=== PATIENT | female | born 1995 | race Caucasian/White ===

== ENCOUNTER 2017-07-20 12:35 | Emergency (ER) | payer OTHER ==
--- OUTSIDE RECORDS SUMMARY | 2017-07-20 12:38 | XMS REPORT ---
:1995 [facility] Address [address] [place] [address] Care Team Providers Name Role Phone Mariella MCGHEE Unavailable Unavailable Kolby MADRID Unavailable Unavailable Problems This patient has no known problems. Allergies, Adverse Reactions, Alerts This patient has no known allergies or adverse reactions. Medications This patient has no known medications. Results Test Description Test Time Test Comments Text Results Atomic Results Result Comments TSH (Ultra Sensitive) 2016-12-13 07:41:00 Test Item Value Reference Range Comments TSH (test code=TSH) 4.13 mIU/L 0.47-4.68 TRA 3DRUG SCREEN [id number] 07:36:00 Test Item Value Reference Range Comments Amphetamines (test Presumptive Positive; code=AMPHET) Confirmation Upon Request FT (test code=CHAPIN) Negative (qualifier value) FT (test code=BENZO) Negative (qualifier value) FT (test code=MARY) Negative (qualifier value) FT (test code=MTD) Negative (qualifier value) FT (test code=OPIAT) Negative (qualifier value) FT (test code=PCP) Negative (qualifier The following table value) provides an interpretive guide for the Drugs of Abuse ran on the [employer] 5.1 analyzer listed there in: Amphetamines < 1000 ng/ml=Negative Barbituates < 200 ng/ml=Negative Benzodiazapines < 200 ngml=Negative Cocaine < 300 ng/ml=Negative Methadone < 300 ng/ml=Negative Opiate < 300 ng/ml=Negative PCP < 25 ng/ml=Negative THC < 50 ng/ml=Negative Results equal to or greater than the above cut-off values=Presumptive Positive. Confirmation of Presumptive Positive results are available upon request. FT (test code=THC) Negative (qualifier value) TRA 3URINALYSIS WITH [id number] 07:18:00 Test Item Value Reference Range Comments Color (test code=UCOLR) YELLOW Clarity (test code=UCLAR) CLEAR Glucose (test code=UGLUC) NEGATIVE NEGATIVE Bilirubin (test code=UBILI) NEGATIVE NEGATIVE Ketones (test code=UKET) TRACE NEGATIVE Specific [place] (test code=USPGR) 1.025 1.005-1.030 Blood (test code=UBLD) TRACE-LYSED NEGATIVE PH (test code=UPH) 6.0 4.5-8.0 Protein (test code=UPROT) TRACE NEGATIVE Urobilinogen (test code=U UROB) 0.2 >0.2 Nitrite (test code=UNITR) POSITIVE NEGATIVE Leukocyte Esterase (test code=ULEUK) TRACE NEGATIVE WBC (test code=WBCUR) 10-20 0-5 RBC (test code=RBCUR) 5-10 0-5 Epithial Cells (test code=U EPI) 0-10 0-10 Mucous (test code=UMUC) Moderate None Seen Bacteria (test code=UBACT) 4+ None Seen,Trace Urine Casts (test code=UR CAST) Rare Hyaline Cast None Seen Urine Misc (test code=UR MISC) Few Budding Yeast None Seen TRA 3ALCOHOL, [id number] 06:04:00 Test Item Value Reference Range Comments Alcohol % (test code=ALCPC) 0 % 0.00-0.00 Ethanol % 0.00 - 0.10 Sub-clinical 0.11 - 0.20 Emotional Instability 0.21 - 0.30 Confusion 0.31 - 0.40 Stupor 0.41 - 0.50 Coma >.50 Fatal TRA 3SALICYLATES (Aspirin)2016-12-13 06:04:00 Test Item Value Reference Range Comments Salicylate (test code=SALI) <1.0 mg/dl 0.0-30.0 Salicylates Reference Ranges: Therapeutic 15 - 30 mg/dl Toxicity >30 mg/dl Lethal >70 mg/dl TRA 3ACETAMINOPHEN (Tyenol)2016-12-13 06:04:00 Test Item Value Reference Range Comments Acetaminophen (test code=ACET) <10 ug/ml 10-30 TRA [id number] 05:59:00 Test Item Value Reference Range Comments Glucose (test code=GLU) 101 mg/dl 75-110 BUN (test code=BUN) 16.0 mg/dl 6.0-17.0 Creatinine (test 0.8 mg/dl 0.4-1.2 code=CREA) Sodium (test code=NA) 145 mmol/l 137-145 Potassium (test code=K) 3.5 mmol/l 3.5-5.0 Chloride (test code=CL) 109 mmol/l 98-107 CO2 (test code=CO2) 23 mmol/l 22-30 Calcium (test code=CALC) 9.6 mg/dl 8.4-10.2 T Protein (test code=TP) 7.7 gm/dl 5.1-8.7 Albumin (test code=ALB) 4.5 gm/dl 3.5-4.6 A/G Ratio (test 1.4 % 1.1-2.2 code=AGRAT) AST (SGOT) (test 31 U/L 11-36 code=AST) ALT (SGPT) (test 30 U/L 11-40 code=ALT) Alkaline Phos (test 53 U/L 47-114 code=ALKP) Total Bilirubin (test 1.1 mg/dl 0.2-1.2 code=TBIL) Globulin (test 3.2 gm/dl 2.3-3.5 code=GLOBU) Calcium, Corrected (test 9.2 mg/dl 8.4-10.2 Various formulas exist for code=CALCCORR) corrected serum calcium results, each yielding different values. This corrected result was based on the formula: Corrected Calcium=SerumCalcium + [0.8 * ( 4 - SerumAlbumin)] EGFR if >60 (test code=EGFRAA) mL/min/1.73m\S\2 EGFR if Non- >60 Estimated Glomerular Citizen Of [place] (test mL/min/1.73m\S\2 Filtration Rate (eGFR) code=EGFRNA) Reference Intervals Decision Points for 18 years and older and average body mass: >=60 Does not exclude kidney disease. 30 - 59 Suggests moderate chronic kidney disease and indicates the need for further investigation including assessment of proteinuria and cardiovascular factors. < 30 Usually indicates a need for referral for assessment and management of chronic kidney failure. TRA 3PREGNANCY TEST, Serum [id number] 05:55:00 Test Item Value Reference Range Comments (Serum) (test code=PREGS) Negative TRA 3CBC WITH AUTO [id number] 05:48:00 Test Item Value Reference Range Comments WBC (test code=WBC) 11.72 10\S\3/ul 4.80-10.80 RBC (test code=RBC) 4.45 10\S\6/ul 4.20-5.40 Hemoglobin (test code=HGB) 11.0 gm/dl 12.0-14.0 Hematocrit (test code=HCT) 34.6 % 37.0-47.0 MCV (test code=MCV) 77.8 fL 81.0-99.0 MCH (test code=MCH) 24.7 pg 27.0-31.0 MCHC (test code=MCHC) 31.8 gm/dl 33.0-37.0 RDW-SD (test code=RDW-SD) 51.9 fL 36.4-46.3 Platelet (test code=PLT) 349 10\S\3/ul 130-400 MPV (test code=MPV) 9.7 fL 7.4-10.4 NE% (test code=NE) 61.6 % 42.0-75.0 LY% (test code=LY) 28.8 % 13.0-42.0 MO% (test code=MO) 7.8 % 4.0-14.0 EO% (test code=EO) 1.0 % 1.0-3.0 BA% (test code=BA) 0.5 % 1.0-3.0 IG% (test code=IG%) 0.3 % 0.0-0.4 TRA 3LIPASE, [id number] 17:34:00 Test Item Value Reference Range Comments Lipase (test code=LIPA) 68 U/L 8-223 [id number] 17:34:00 Test Item Value Reference Range Comments Glucose (test code=GLU) 92 mg/dl 75-110 BUN (test code=BUN) 19.0 mg/dl 6.0-17.0 Creatinine (test 0.7 mg/dl 0.4-1.2 code=CREA) Sodium (test code=NA) 141 mmol/l 137-145 Potassium (test code=K) 4.4 mmol/l 3.5-5.0 Chloride (test code=CL) 103 mmol/l 98-107 CO2 (test code=CO2) 26 mmol/l 22-30 Calcium (test code=CALC) 9.3 mg/dl 8.4-10.2 T Protein (test code=TP) 8.7 gm/dl 5.1-8.7 Albumin (test code=ALB) 5.0 gm/dl 3.5-4.6 A/G Ratio (test 1.4 % 1.1-2.2 code=AGRAT) AST (SGOT) (test 33 U/L 11-36 code=AST) ALT (SGPT) (test 27 U/L 11-40 code=ALT) Alkaline Phos (test 67 U/L 47-114 code=ALKP) Total Bilirubin (test 0.7 mg/dl 0.2-1.2 code=TBIL) Globulin (test 3.7 gm/dl 2.3-3.5 code=GLOBU) Calcium, Corrected (test 8.5 mg/dl 8.4-10.2 Various formulas exist for code=CALCCORR) corrected serum calcium results, each yielding different values. This corrected result was based on the formula: Corrected Calcium=SerumCalcium + [0.8 * ( 4 - SerumAlbumin)] EGFR if >60 (test code=EGFRAA) mL/min/1.73m\S\2 EGFR if Non- >60 Estimated Glomerular Citizen [place] (test mL/min/1.73m\S\2 Filtration Rate (eGFR) code=EGFRNA) Reference Intervals Decision Points for 18 years and older and average body mass: >=60 Does not exclude kidney disease. 30 - 59 Suggests moderate chronic kidney disease and indicates the need for further investigation including assessment of proteinuria and cardiovascular factors. < 30 Usually indicates a need for referral for assessment and management of chronic kidney failure. CBC WITH AUTO [id number] 17:14:00 Test Item Value Reference Range Comments WBC (test code=WBC) 13.1 k/ul 4.8-10.8 RBC (test code=RBC) 5.09 Millions/ul 4.20-5.40 Hemoglobin (test code=HGB) 12.3 gm/dl 12.0-14.0 Hematocrit (test code=HCT) 38.4 % 37.0-47.0 MCV (test code=MCV) 75.6 fL 81.0-99.0 MCH (test code=MCH) 24.1 pg 27.0-31.0 MCHC (test code=MCHC) 31.9 gm/dl 33.0-37.0 RDW (test code=RDWVC) 19.5 % 11.5-14.5 Platelet (test code=PLT) 346 10\S\3/ul 130-400 MPV (test code=MPV) 8.0 fL 7.4-10.4 NE% (test code=NE) 86.9 % 42.0-75.0 LY% (test code=LY) 7.7 % 13.0-42.0 MO% (test code=MO) 4.9 % 4.0-14.0 EO% (test code=EO) 0.2 % 1.0-3.0 BA% (test code=BA) 0.3 % 1.0-3.0 NRBC, Auto (test code=NRBC_AUTO) 0 TEST, Urine [id number] 16:27:00 Test Item Value Reference Range Comments (Urine) (test code=PREGU) Negative If a specimen is collected by a nurse, then you MUST fill out the Collected and Collected By ashley URINALYSIS WITHOUT [id number] 16:24:00 Test Item Value Reference Range Comments Color (test code=UCOLR) YELLOW Clarity (test code=UCLAR) CLEAR Glucose (test code=UGLUC) NEGATIVE NEGATIVE Bilirubin (test code=UBILI) NEGATIVE NEGATIVE Ketones (test code=UKET) NEGATIVE NEGATIVE Specific [place] (test code=USPGR) 1.025 1.005-1.030 Blood (test code=UBLD) NEGATIVE NEGATIVE PH (test code=UPH) 6.0 4.5-8.0 Protein (test code=UPROT) TRACE NEGATIVE Urobilinogen (test code=U UROB) 0.2 >0.2 Nitrite (test code=UNITR) NEGATIVE NEGATIVE Leukocyte Esterase (test code=ULEUK) NEGATIVE NEGATIVE
[2017-07-20 15:42] LABS: Absolute Monocytes 0.9 K/uL (0.1-1.3); Absolute Neutrophil 12.3 K/uL (1.8-8.0); Basophils % 0.4 % (0-1.3); Eosinophils % 0.7 % (0-4.4); Hematocrit 33.3 % (36.0-45.0); MCH 25.8 pg (27.0-35.0); MCV 80.6 fL (80-100); MPV 8.2 fL (7.6-11.3); Monocytes % 6.1 % (3.3-12.3); RBC Red Blood Cell Count 4.14 M/uL (3.86-4.86)
[2017-07-20 15:48] LABS: BUN Blood Urea Nitrogen 6 mg/dL (6-20); Bicarbonate 25 mEq/L (21-31); Glomerular Filtration Rate > 90 mL/min (=/>90); Glucose Level 95 mg/dL (65-120); Potassium 3.4 mEq/L (3.6-5.0); Sodium Level 134 mEq/L (135-145)
--- NOTE | 2017-07-20 16:48 | ER ---
Nurse's Notes [facility] Name: [facility] Age: 22 yrs Sex: Female : 1995 Arrival Date: 07/20/2017 Time: 12:40 Bed 28 Private MD: Diagnosis: Threatened Presentation: 07/20 12:45 Presenting complaint: Patient states: Bilateral lower abdominal cramping and vaginal aj spotting that started today. Patient reports she is 15 weeks . 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 Transition of care: patient was not received from another setting of care. Onset of symptoms was July 20, 2017. Care prior to arrival: None. 12:45 Method Of Arrival: Ambulatory aj 12:45 Acuity: KATIE 3 aj Triage Assessment: 12:46 General: Appears in no apparent distress. comfortable, Behavior is calm, cooperative, aj appropriate for age. Pain: Complains of pain in abdomen. Neuro: Level of Consciousness is awake, alert, obeys commands, Oriented to person, place, time, situation. Respiratory: Airway is patent Respiratory effort is even, unlabored, Respiratory pattern is regular, symmetrical. : Reports vaginal bleeding that is bright red, spotty. Derm: Skin is intact, is healthy with good turgor, Skin is pink, warm \T\ dry. normal. 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 - Social history:: Smoking status: Patient uses tobacco products, smokes one pack cigarettes per day. Patient uses street drugs, Methamphetamine (Meth). Screenin:17 Abuse screen: Denies threats or abuse. Nutritional screening: No deficits noted. rk2 Tuberculosis screening: No symptoms or risk factors identified. Fall Risk None identified. Assessment: 16:08 Reassessment: US being completed \T\ bedside. rk2 16:17 General: Appears in no apparent distress. well developed, well nourished. Pain: Denies rk2 pain. Neuro: No deficits noted. Level of Consciousness is alert, Oriented to person, place, time, situation. Respiratory: Airway is patent Respiratory effort is even, unlabored, Respiratory pattern is regular, symmetrical. GI: Patient currently denies abdominal pain. Derm: Skin is pink, warm \T\ dry. 16:50 Reassessment: Pt. resting in room \T\ this time, waiting for medications to come from [facility] blood bank. Pt. voiced no needs \T\ this time. Appears to be in no obvious distress. 17:59 Reassessment: Pt. received RhoGam shot... Reviewed DC instructions with pt. Pt. able to [facility] ambulate out on her own. Vital Signs: 12:46 BP 130 / 79; Pulse 115; Resp 20; Temp 98.5; Pulse Ox 99% on R/A; Weight 63.5 kg; Height aj 5 ft. 3 in. (160.02 cm); Pain 1/10; 15:23 BP 141 / 84; Pulse 87; Resp 16; Pulse Ox 100% on R/A; rk2 16:45 BP 133 / 88; Pulse 92; Resp 16; Pulse Ox 100% on R/A; rk2 17:45 BP 121 / 68; Pulse 96; Resp 16; Pulse Ox 100% on R/A; rk2 12:46 Body Mass Index 24.80 (63.50 kg, 160.02 cm) aj ED Course: 12:40 Patient arrived in ED. sb2 12:46 Triage completed. aj 12:46 Arm band placed on left wrist. Patient placed in waiting room, Patient notified of wait aj time. 15:08 Jaya Robledo NP is PHCP. pm1 15:08 Akash Major MD is Attending Physician. pm1 15:08 PHCP role handed off by Jaya Robledo NP jr8 15:08 Westley Townsend PA is PHCP. jr8 15:18 Vickie Enriquez, LILLIAN is Primary Nurse. rk2 15:25 Urine collected: clean catch specimen, clear. dh3 15:28 Initial lab(s) drawn, by me, sent to lab. Inserted saline lock: 20 gauge in left dh3 antecubital area, using aseptic technique. Blood collected. 16:07 US OB Limited Sent. rk2 16:17 Patient has correct armband on for positive identification. Bed in low position. Call rk2 light in reach. 16:42 Note: us done bedside/portable. lc3 18:03 No provider procedures requiring assistance completed. IV discontinued. rk2 Administered Medications: 17:45 Drug: RhoGAM (Human) 300 mcg Route: IM; Site: left deltoid; rk2 17:50 Follow up: Response: No adverse reaction; given \T\ DC rk2 Intake: Outcome: 16:47 Discharge ordered by MD. white 18:03 Discharged to home ambulatory. rk2 18:03 Condition: good 18:03 Discharge instructions given to patient. 18:04 Patient left the ED. rk2 Signatures: Maritza Haney, RN RN Westley Mccallum PA PA jr8 Georges Gold Patrick, NP CHILD CARE DEVELOPMENT SPECIALIST pm1 Myrna Blair 3 Vickie Enriquez RN RN rk2 Aubrie Katz sb2
--- NOTE | 2017-07-20 16:48 | EDPHYS ---
Physician Documentation [facility] Name: [facility] Age: 22 yrs Sex: Female : 1995 Arrival Date: 07/20/2017 Time: 12:40 Bed 28 Private MD: ED Physician Akash Major HPI: 07/20 15:15 This 22 yrs old Female presents to ER via Ambulatory with complaints of ABD jr8 PAIN,16 WEEKS . 15:15 The patient presents with pelvic pain, vaginal bleeding that is light, spotting. Onset: jr8 The symptoms/episode began/occurred acutely, today. Modifying factors: The symptoms are alleviated by nothing, the symptoms are aggravated by nothing. Associated signs and symptoms: The patient has no apparent associated signs or symptoms. Severity of symptoms: At their worst the symptoms were mild, in the emergency department the symptoms are unchanged. The patient has not experienced similar symptoms in the past. The patient has not recently seen a physician. 15:16 Denies trauma, recent illness, or urinary symptoms . jr8 DENIAL RESOLUTION SPECIALIST: 12:46 4, Full Term 2, Premature 0, 1, Living 2 aj 15:15 4, Full Term 2, Premature 0, 1, Living 2, Verified jr8 Historical: - Allergies: 12:46 No Known Allergies; aj - Home Meds: 12:46 Vitamin Oral [Active]; aj - PMHx: 12:46 Anemia; aj - PSHx: 12:46 None; aj - Immunization history:: Adult Immunizations up to date. - Social history:: Smoking status: Patient uses tobacco products, smokes one pack cigarettes per day. Patient uses street drugs, Methamphetamine (Meth). ROS: 15:15 Eyes: Negative for injury, pain, redness, and discharge, ENT: Negative for injury, jr8 pain, and discharge, Neck: Negative for injury, pain, and swelling, Cardiovascular: Negative for chest pain, palpitations, and edema, Respiratory: Negative for shortness of breath, cough, wheezing, and pleuritic chest pain, Abdomen/GI: Negative for abdominal pain, nausea, vomiting, diarrhea, and constipation, Back: Negative for injury and pain, MS/Extremity: Negative for injury and deformity, Skin: Negative for injury, rash, and discoloration, Neuro: Negative for headache, weakness, numbness, tingling, and seizure. 15:15 : Positive for pelvic pain, vaginal bleeding, Negative for urinary symptoms, hematuria, flank pain, vaginal discharge, vaginal itching. Exam: 15:15 Eyes: Pupils equal round and reactive to light, extra-ocular motions intact. Lids and jr8 lashes normal. Conjunctiva and sclera are non-icteric and not injected. Cornea within normal limits. Periorbital areas with no swelling, redness, or edema. ENT: Nares patent. No nasal discharge, no septal abnormalities noted. Tympanic membranes are normal and external auditory canals are clear. Oropharynx with no redness, swelling, or masses, exudates, or evidence of obstruction, uvula midline. Mucous membranes moist. Neck: Trachea midline, no thyromegaly or masses palpated, and no cervical lymphadenopathy. Supple, full range of motion without nuchal rigidity, or vertebral point tenderness. No Meningismus. Cardiovascular: Regular rate and rhythm with a normal S1 and S2. No gallops, murmurs, or rubs. Normal PMI, no JVD. No pulse deficits. Respiratory: Lungs have equal breath sounds bilaterally, clear to auscultation and percussion. No rales, rhonchi or wheezes noted. No increased work of breathing, no retractions or nasal flaring. Abdomen/GI: Soft, non-tender, with normal bowel sounds. No distension or tympany. No guarding or rebound. No evidence of tenderness throughout. Back: No spinal tenderness. No costovertebral tenderness. Full range of motion. Skin: Warm, dry with normal turgor. Normal color with no rashes, no lesions, and no evidence of cellulitis. MS/ Extremity: Pulses equal, no cyanosis. Neurovascular intact. Full, normal range of motion. Neuro: Awake and alert, GCS 15, oriented to person, place, time, and situation. Cranial nerves II-XII grossly intact. Motor strength 5/5 in all extremities. Sensory grossly intact. Cerebellar exam normal. Normal gait. Vital Signs: 12:46 BP 130 / 79; Pulse 115; Resp 20; Temp 98.5; Pulse Ox 99% on R/A; Weight 63.5 kg; Height aj 5 ft. 3 in. (160.02 cm); Pain 1/10; 15:23 BP 141 / 84; Pulse 87; Resp 16; Pulse Ox 100% on R/A; rk2 16:45 BP 133 / 88; Pulse 92; Resp 16; Pulse Ox 100% on R/A; rk2 17:45 BP 121 / 68; Pulse 96; Resp 16; Pulse Ox 100% on R/A; rk2 12:46 Body Mass Index 24.80 (63.50 kg, 160.02 cm) aj MDM: 15:08 Patient medically screened. pm1 16:46 Data reviewed: vital signs, nurses notes, lab test result(s), radiologic studies, [facility] ultrasound, and as a result, I will discharge patient. Data interpreted: Pulse oximetry: on room air is 100 %. Interpretation: normal. Counseling: I had a detailed discussion with the patient and/or guardian regarding: the historical points, exam findings, and any diagnostic results supporting the discharge/admit diagnosis, lab results, radiology results, the need for outpatient follow up, an OB/Gyne specialist, to return to the emergency department if symptoms worsen or persist or if there are any questions or concerns that arise at home. ED course: Instructions given for pelvic rest, lots of water, tylenol only for pain. To f/u with DENIAL RESOLUTION SPECIALIST. To continue rehab and to stay away from drug use. Patient understood and would follow instructions and follow up . 07/20 15:08 Order name: Quantitative Hcg [facility] 07/20 15:08 Order name: Abo/rh Typing [facility] 07/20 15:08 Order name: Basic Metabolic Panel [facility] 07/20 15:08 Order name: CBC with Diff [facility] 07/20 15:48 Order name: Basic Metabolic Panel; Complete Time: 16:47 [facility] 07/20 15:48 Order name: CBC with Automated Diff; Complete Time: 15:58 [facility] 07/20 15:14 Order name: US OB Limited [facility] 07/20 16:22 Order name: Urine Dipstick--Ancillary (enter results) 07/20 16:22 Order name: Urine --Ancillary (enter results) 07/20 16:28 Order name: ABO/RH typing [facility] 07/20 16:34 Order name: HCG, Quantitative; Complete Time: 16:47 [facility] 07/20 17:13 Order name: Antibody Screen [facility] 07/20 17:13 Order name: Urine --Ancillary; Complete Time: 17:27 [facility] 07/20 17:13 Order name: Urine Dipstick-Ancillary; Complete Time: 17:27 [facility] 07/20 15:08 Order name: Urine Test (obtain specimen); Complete Time: 15: jr8 07/20 15:08 Order name: IV Saline Lock; Complete Time: 15: jr8 07/20 15:08 Order name: Labs collected and sent; Complete Time: 15:8 07/20 15:08 Order name: NPO; Complete Time: 15:8 07/20 15:08 Order name: Urine Dipstick-Ancillary (obtain specimen); Complete Time: 15: 8 07/20 16:50 Order name: US; Complete Time: 16:57 EDMS Administered Medications: 17:45 Drug: RhoGAM (Human) 300 mcg Route: IM; Site: left deltoid; rk2 17:50 Follow up: Response: No adverse reaction; given \T\ DC rk2 Disposition: 07/21 07:33 Co-signature as Attending Physician, Akash Major MD I agree with the assessment and [facility] plan of care. Disposition: 07/20/17 16:47 Discharged to Home. Impression: Threatened . - Condition is Stable. - Discharge Instructions: Threatened Miscarriage, Pelvic Rest. - Medication Reconciliation Form, Thank You Letter, Antibiotic Education, Prescription Opioid Use form. - Follow up: Private Physician; When: 5 - 6 days; Reason: Recheck today's complaints, Continuance of care, Re-evaluation by your physician. - Problem is new. - Symptoms have improved. Signatures: Dispatcher [employer] Maritza Melvin, RN Akash Brady MD MD cha Roszak, Josh, PA PA jr8 Jaya Robledo NP CRYOGENICS ENGINEER pm1 Vickie Enriquez RN RN rk2
--- NOTE | 2017-07-20 16:49 | RAD REPORT ---
EXAM DESCRIPTION: US - OB Limited - 07/20/2017 4:39 pm CLINICAL HISTORY: Vaginal bleeding, . COMPARISON: None. FINDINGS: A single variable presenting gestation is identified. Heart rate normal. The cervix is long and closed. The placenta is anterior without evidence of abruption. Amniotic fluid volume is normal. IMPRESSION: No acute finding is seen.
[2017-07-20 17:12] LABS: Urine Blood NEGATIVE (NEG); Urine Glucose NEGATIVE (NEG); Urine Protein NEGATIVE (NEG); Urine Specific Gravity 1.015 (1.005-1.030)
== END 2017-07-20 18:04 | disposition home or self-care (01) ==
LOC: ER 12:35
DX: O20.0 Threatened abortion (principal); Z3A.16 16 weeks gestation of pregnancy; O99.332 Smoking (tobacco) complicating pregnancy, second trimester; F17.210 Nicotine dependence, cigarettes, uncomplicated
CPT/HCPCS: 36415; 76815; 80048; 81003; 81025; 84702; 85025; 86850; 86900; 86901; 96372; 99284; J2790